=== PATIENT | male | born 1950 | race Caucasian/White ===

== ENCOUNTER → 2018-12-15 08:46 | Outpatient (CLI) | payer OTHER, SELFPAY ==
--- NOTE | 2018-12-15 | DI.US.S_ITS ---
PROCEDURE: US ABD AORTA ANEURYSM SCREEN INDICATIONS: AAA SCREENING TECHNIQUE: Real time scanning was performed of the aorta and iliac arteries, with image documentation. COMPARISON: None. FINDINGS: Aorta: Proximal aorta is obscured by overlying bowel gas. Mid-aorta measures 1.8 cm. Distal aortic diameter is 1.7 cm. Iliac arteries: Right common iliac artery measures 1.1 cm. Left common iliac artery measures 1.1 cm. IMPRESSION: No evidence for abdominal aortic aneurysm. Dictated by: Tylor Dempsey M.D. on 12/15/2018 at 9:20 Approved by: Tylor Dempsey M.D. on 12/15/2018 at 9:21
== END ==
PROVIDERS: PCP Family Medicine; Visit Provider Family Medicine
DX: Z13.6 Encounter for screening for cardiovascular disorders (principal)
CPT/HCPCS: 76706; 76775

== ENCOUNTER → 2021-02-26 09:18 | Outpatient (CLI) | payer MEDICARE, SELFPAY ==
[2021-02-26 20:19] LABS: Add Manual Diff / Slide Review NO; Basophils Absolute Auto 100 /uL (0-100); Basophils Percent Auto 0.8 % (0-2); Eosinophils Absolute Auto 200 /uL (0-450); Eosinophils Percent Auto 2.7 % (2-4); Hematocrit 42.2 % (41-53); Hemoglobin 13.9 g/dL (13.5-17.5); Lymphocytes Absolute Auto 1700 /uL (1100-4500); Mean Corpuscular Hemoglobin 32.3 PG (26-34); Mean Corpuscular Volume 97.9 fL (80-100); Monocytes Absolute Auto 500 /uL (0-900); Monocytes Percent Auto 6.7 % (3-14); Neutrophils Absolute Auto 4900 /uL (1500-7000); Neutrophils Percent Auto 66.8 % (50-75); Platelet Count 308 X10^3/uL (150-400); Red Blood Cell Count 4.31 X10^6/uL (4.5-5.9); Red Cell Distribution Width 14.9 % (11.6-14.8); White Blood Cell Count 7.4 X10^3/uL (4.5-11.0)
[2021-02-26 20:28] LABS: HEMOLYSIS < 15 (0-50); Potassium 4.8 mmol/L (3.4-5.1)
[2021-02-26 20:29] LABS: Alanine Aminotransferase 30 IU/L (<50); Albumin 4.4 g/dL (3.5-5.0); Albumin Globulin Ratio 1.5 (1.0-2.8); Alkaline Phosphatase 63 U/L (38-126); Aspartate Aminotransferase 33 IU/L (17-59); BUN Creatinine Ratio 23.3 (6-22); Bilirubin Total 0.5 mg/dL (0.2-1.3); Blood Urea Nitrogen 20 mg/dL (9-20); Calcium 10.3 mg/dL (8.4-10.2); Carbon Dioxide 27 mmol/L (22-32); Chloride 102 mmol/L (98-107); Cholesterol 167 mg/dL (140-199); Estimated Glomerular Filt Rate > 60.0 mL/min (>60); Glucose 107 mg/dL (80-110); HDL Cholesterol 35 mg/dL (40-60); LDL Cholesterol Calculated 96 mg/dL (<100); Sodium 139 mmol/L (137-145); Total Protein 7.4 g/dL (6.3-8.2); Triglycerides 182 mg/dL (35-150); Uric Acid 5.6 mg/dL (3.5-8.5)
[2021-02-26 20:49] LABS: Hemoglobin A1C% w Est Avg Glu 6.2 % (4.0-6.0)
[2021-02-26 20:55] LABS: Prostate Specific Antigen 1.68 ng/mL (0.10-4.00)
== END ==
PROVIDERS: PCP Family Medicine; Visit Provider Family Medicine
DX: N40.1 Benign prostatic hyperplasia with lower urinary tract symptoms (principal); R35.1 Nocturia; M10.9 Gout, unspecified; R73.03 Prediabetes; I10 Essential (primary) hypertension; F31.9 Bipolar disorder, unspecified; M48.02 Spinal stenosis, cervical region
CPT/HCPCS: 80053; 80061; 83036; 84153; 84550; 85025

== ENCOUNTER → 2021-08-14 09:40 | Outpatient (CLI) | payer MEDICARE, SELFPAY ==
[2021-08-14 19:37] LABS: Alanine Aminotransferase 25 IU/L (<50); Albumin 4.4 g/dL (3.5-5.0); Albumin Globulin Ratio 1.5 (1.0-2.8); Alkaline Phosphatase 65 U/L (38-126); Aspartate Aminotransferase 26 IU/L (17-59); BUN Creatinine Ratio 23.2 (6-22); Bilirubin Total 0.4 mg/dL (0.2-1.3); Blood Urea Nitrogen 19 mg/dL (9-20); Carbon Dioxide 27 mmol/L (22-32); Chloride 104 mmol/L (98-107); Cholesterol 133 mg/dL (140-199); Estimated Glomerular Filt Rate > 60.0 mL/min (>60); Globulin 2.9 g/dL (1.7-4.1); Glucose 109 mg/dL (80-110); HDL Cholesterol 43 mg/dL (40-60); HEMOLYSIS < 15 (0-50); Hemoglobin A1C% w Est Avg Glu 5.8 % (4.0-6.0); LDL Cholesterol Calculated 63 mg/dL (<100); Potassium 4.4 mmol/L (3.4-5.1); Sodium 141 mmol/L (137-145); Total Protein 7.3 g/dL (6.3-8.2); Triglycerides 133 mg/dL (35-150)
== END ==
PROVIDERS: PCP Family Medicine; Visit Provider Family Medicine
DX: B00.9 Herpesviral infection, unspecified (principal); E78.5 Hyperlipidemia, unspecified; R73.09 Other abnormal glucose; R73.9 Hyperglycemia, unspecified; R91.1 Solitary pulmonary nodule
CPT/HCPCS: 80053; 80061; 83036

== ENCOUNTER → 2021-11-09 12:12 | Outpatient (CLI) | payer MEDICARE, SELFPAY ==
--- NOTE | 2021-11-09 12:33 | DI.CT.S_ITS ---
PROCEDURE: CT CHEST WO CON INDICATIONS: re-evaluate Right upper lobe nodule last CT 12/05/2019 TECHNIQUE: Noncontrast 2.0-2.5 mm thick sections acquired from the pulmonary apices to the posterior costophrenic angles. 7 mm thick axial MIP and 5 mm coronal and sagittal reformats were then acquired. A low radiation dose technique was utilized. COMPARISON: [facility], CT, CT LOW DOSE LUNG CA SCREENING, 12/15/2018, 11:00. [facility], CT, CT LOW DOSE LUNG CA SCREENING, 12/05/2019, 11:33. FINDINGS: Image quality: Diagnostic, given the low radiation dose technique. Lungs and pleura: Stable lung nodules since 12/05/2019. Nodule 1: 6 mm; right upper lobe; series 4, image 153). Nodule 2: 2 mm; right minor fissure nodule; series 4, image 159. Mediastinum: Heart size is normal. Mild coronary artery calcification. No pericardial effusion. No mediastinal adenopathy by size criteria. Thoracic aorta and central pulmonary arteries are normal in size. Esophagus is normal in caliber. Small hiatal hernia. Bones and chest wall: No suspicious bony lesions. No vertebral body compression fractures. No axillary or supraclavicular adenopathy by size criteria. Thyroid gland is normal. Abdomen: Visualized upper abdomen solid organs and bowel loops appear normal in the absence of contrast. IMPRESSION: 1. Stable right upper lobe nodule. ACR Lung rads category 2. Recommend screening lung CT in 12 months. Fleischner Society criteria for SOLID lung nodule followup. Nodule size (mm)Low-risk patientHigh-risk patient<6 (single or multiple)No routine followup.Optional CT at 12 months. 6-8 (single or multiple)CT at 6-12 months, then optional CT at 18-24 mo.CT at 6-12 months, then CT at 18-24 months. >8 (single)CT at 3 months, PET-CT, or biopsy. Same as for low-risk pts. >8 (multiple)CT at 3-6 months, then optional CT at 18-24 mo.CT at 3-6 months, then CT at 18-24 months. Fleischner Society criteria for SUB-SOLID lung nodule followup. Solitary pure ground-glass nodules<6 mm (ground glass or part solid)No followup needed. 6 mm or larger (ground glass)CT at 6-12 months to confirm persistence, then CT every 2 years until 5 years.6 mm or larger (part solid)CT at 3-6 months to confirm persistence, then annual CT until 5 years if unchanged and solid component remains <6 mm. Multiple sub-solid nodules<6 mmCT at 3-6 months, then CT consider at 2 & 4 years for high risk patients. [address] at 3-6 months. Subsequent management based on most suspicious lesions. Recommendations do not apply to lung cancer screening, patients with immunosuppression, or patients with known primary cancer. Dictated by: Tylor Dempsey M.D. on 11/09/2021 at 13:18 Approved by: Tylor Dempsey M.D. on 11/09/2021 at 13:31
== END ==
PROVIDERS: PCP Family Medicine; Referring Provider Family Medicine; Visit Provider Family Medicine
DX: R91.1 Solitary pulmonary nodule (principal); I25.10 Atherosclerotic heart disease of native coronary artery without angina pectoris
CPT/HCPCS: 71250

== ENCOUNTER → 2022-06-28 10:16 | Outpatient (CLI) | payer MEDICARE, SELFPAY ==
[2022-06-28 19:50] LABS: Alanine Aminotransferase 51 IU/L (<50); Albumin 4.6 g/dL (3.5-5.0); Albumin Globulin Ratio 1.5 (1.0-2.8); Alkaline Phosphatase 62 U/L (38-126); Aspartate Aminotransferase 41 IU/L (17-59); BUN Creatinine Ratio 21.4 (6-22); Bilirubin Total 0.5 mg/dL (0.2-1.3); Blood Urea Nitrogen 18 mg/dL (9-20); Calcium 9.7 mg/dL (8.4-10.2); Carbon Dioxide 30 mmol/L (22-32); Chloride 100 mmol/L (98-107); Cholesterol 154 mg/dL (140-199); Estimated Glomerular Filt Rate > 60 mL/min (>60); Glucose 110 mg/dL (80-110); HDL Cholesterol 36 mg/dL (40-60); HEMOLYSIS < 15 (0-50); Hemoglobin A1C% w Est Avg Glu 6.1 % (4.0-6.0); LDL Cholesterol Calculated 87 mg/dL (<100); Potassium 5.3 mmol/L (3.4-5.1); Sodium 139 mmol/L (137-145); Total Protein 7.6 g/dL (6.3-8.2); Triglycerides 156 mg/dL (35-150); Uric Acid 4.2 mg/dL (3.5-8.5)
[2022-06-28 20:16] LABS: Prostate Specific Antigen Scrn 1.56 ng/mL (0.1-4.0)
[2022-06-28 20:18] LABS: TSH w/ Reflex to FT4 2.41 uIU/mL (0.47-4.68)
[2022-06-28 20:41] LABS: HIV 1 & 2 Ab/Ag 4th Gen Combo NEGATIVE (NEGATIVE); Hep C Virus Ab w/Reflex Quant NEGATIVE s/c (NEGATIVE)
== END ==
PROVIDERS: PCP Family Medicine; Visit Provider Family Medicine
DX: M25.559 Pain in unspecified hip (principal); F10.20 Alcohol dependence, uncomplicated; M10.9 Gout, unspecified; R73.03 Prediabetes; Z00.00 Encounter for general adult medical examination without abnormal findings; Z12.5 Encounter for screening for malignant neoplasm of prostate
CPT/HCPCS: 80053; 80061; 83036; 84443; 84550; 86803; 87389; G0103

== ENCOUNTER → 2023-01-21 09:45 | Outpatient (CLI) | payer MEDICARE, SELFPAY ==
--- NOTE | 2023-01-21 09:46 | DI.CT.S_ITS ---
PROCEDURE: CT CHEST WO CON INDICATIONS: 12 month fu nodule TECHNIQUE: Noncontrast 2.0-2.5 mm thick sections acquired from the pulmonary apices to the posterior costophrenic angles. 7 mm thick axial MIP and 5 mm coronal and sagittal reformats were then acquired. A low radiation dose technique was utilized. COMPARISON: [facility], CT, CT LOW DOSE LUNG CA SCREENING, 12/15/2018, 11:00. [facility], CT, CT LOW DOSE LUNG CA SCREENING, 12/05/2019, 11:33. [facility], CT, CT CHEST WO CON, 11/09/2021, 12:17. FINDINGS: Image quality: Diagnostic, given the low radiation dose technique. Lungs and pleura: Stable right upper lobe lung nodules. Nodule 1: 6 mm; series 3, image 144. Nodule 2: 2 mm; series 3 image 150. Mediastinum: Heart size is normal. Bxom-ny-lojivisd coronary artery calcification. No pericardial effusion. No mediastinal adenopathy by size criteria. Thoracic aorta and central pulmonary arteries are normal in size. Esophagus is normal in caliber. No hiatal hernia. Bones and chest wall: No suspicious bony lesions. No vertebral body compression fractures. No axillary or supraclavicular adenopathy by size criteria. Thyroid gland is unremarkable . Abdomen: Visualized upper abdomen solid organs and bowel loops appear normal in the absence of contrast. IMPRESSION: Stable lung nodules. ACR Lung-RADS category 2. Recommend annual screening lung CT in 12 months. Fleischner Society criteria for SOLID lung nodule followup. Nodule size (mm)Low-risk patientHigh-risk patient<6 (single or multiple)No routine followup.Optional CT at 12 months. 6-8 (single or multiple)CT at 6-12 months, then optional CT at 18-24 mo.CT at 6-12 months, then CT at 18-24 months. >8 (single)CT at 3 months, PET-CT, or biopsy. Same as for low-risk pts. >8 (multiple)CT at 3-6 months, then optional CT at 18-24 mo.CT at 3-6 months, then CT at 18-24 months. Fleischner Society criteria for SUB-SOLID lung nodule followup. Solitary pure ground-glass nodules<6 mm (ground glass or part solid)No followup needed. 6 mm or larger (ground glass)CT at 6-12 months to confirm persistence, then CT every 2 years until 5 years.6 mm or larger (part solid)CT at 3-6 months to confirm persistence, then annual CT until 5 years if unchanged and solid component remains <6 mm. Multiple sub-solid nodules<6 mmCT at 3-6 months, then CT consider at 2 & 4 years for high risk patients. [address] at 3-6 months. Subsequent management based on most suspicious lesions. Recommendations do not apply to lung cancer screening, patients with immunosuppression, or patients with known primary cancer. Dictated by: Tylor Dempsey M.D. on 01/21/2023 at 10:59 Approved by: Tylor Dempsey M.D. on 01/21/2023 at 11:04
== END ==
PROVIDERS: PCP Family Medicine; Referring Provider Family Medicine; Visit Provider Family Medicine
DX: R91.8 Other nonspecific abnormal finding of lung field (principal)
CPT/HCPCS: 71250

== ENCOUNTER → 2023-07-19 09:50 | Outpatient (CLI) | payer MEDICARE, SELFPAY ==
[2023-07-19 19:14] LABS: Alanine Aminotransferase 44 IU/L (<50); Albumin 4.3 g/dL (3.5-5.0); Albumin Globulin Ratio 1.5 (1.0-2.8); Alkaline Phosphatase 70 U/L (38-126); Aspartate Aminotransferase 34 IU/L (17-59); BUN Creatinine Ratio 22.9 (6-22); Bilirubin Total 0.5 mg/dL (0.2-1.3); Blood Urea Nitrogen 19 mg/dL (9-20); Calcium 9.8 mg/dL (8.4-10.2); Carbon Dioxide 26 mmol/L (22-32); Chloride 104 mmol/L (98-107); Cholesterol 174 mg/dL (140-199); Estimated Glomerular Filt Rate > 60 mL/min (>60); Globulin 2.8 g/dL (1.7-4.1); Glucose 113 mg/dL (80-110); HDL Cholesterol 38 mg/dL (40-60); HEMOLYSIS < 15 (0-50); LDL Cholesterol Calculated 113 mg/dL (<100); Potassium 4.7 mmol/L (3.4-5.1); Sodium 138 mmol/L (137-145); Total Protein 7.1 g/dL (6.3-8.2); Triglycerides 113 mg/dL (35-150)
[2023-07-19 19:26] LABS: Add Manual Diff / Slide Review NO; Basophils Absolute Auto 100 /uL (0-100); Basophils Percent Auto 0.8 % (0-2); Eosinophils Absolute Auto 100 /uL (0-450); Hematocrit 43.6 % (41-53); Hemoglobin 14.6 g/dL (13.5-17.5); Lymphocytes Absolute Auto 1800 /uL (1100-4500); Mean Corpuscular HGB Conc 33.4 % (30-36); Mean Corpuscular Hemoglobin 32.1 PG (26-34); Mean Corpuscular Volume 96.1 fL (80-100); Monocytes Absolute Auto 500 /uL (0-900); Monocytes Percent Auto 7.6 % (3-14); Neutrophils Absolute Auto 4700 /uL (1500-7000); Neutrophils Percent Auto 64.6 % (50-75); Platelet Count 254 X10^3/uL (150-400); Red Blood Cell Count 4.54 X10^6/uL (4.5-5.9); Red Cell Distribution Width 14.5 % (11.6-14.8); White Blood Cell Count 7.2 X10^3/uL (4.5-11.0)
[2023-07-19 19:32] LABS: Hemoglobin A1C% w Est Avg Glu 5.8 % (4.0-6.0)
[2023-07-19 19:43] LABS: Prostate Specific Antigen Scrn 2.12 ng/mL (0.1-4.0)
== END ==
PROVIDERS: PCP Family Medicine; Visit Provider Family Medicine
DX: E78.5 Hyperlipidemia, unspecified (principal); I10 Essential (primary) hypertension; R73.03 Prediabetes; Z12.5 Encounter for screening for malignant neoplasm of prostate
CPT/HCPCS: 80053; 80061; 83036; 85025; G0103

== ENCOUNTER → 2023-08-08 09:56 | Outpatient (CLI) | payer MEDICARE, SELFPAY ==
[2023-08-08 19:51] LABS: HEMOLYSIS 15 (0-50); Iron 172 ug/dL (49-181)
[2023-08-08 20:04] LABS: Percent Iron Saturation 55 % (20-50); Total Iron Binding Capacity 310 ug/dL (261-462); Transferrin 244 mg/dL (206-381)
[2023-08-08 20:30] LABS: TSH w/ Reflex to FT4 2.31 uIU/mL (0.47-4.68)
[2023-08-08 20:33] LABS: Ferritin 115 ng/mL (18-464)
[2023-08-08 20:48] LABS: Vitamin B12 Reflex MMA if <400 842 pg/mL (239-931)
[2023-08-10 05:20] LABS: HBsAg Screen Negative (Negative); Hepatitis A Antibody IgM Negative (Negative); Hepatitis B Core Antibody IgM Negative (Negative); Hepatitis C Antibody Non Reactive (Non Reactive)
[2023-08-10 19:36] LABS: Free Kappa Lt Chains, Serum 24.1 mg/L (3.3-19.4); Free Lambda Lt Chains,Serum 14.3 mg/L (5.7-26.3)
[2023-08-11 08:54] LABS: Hepatitis B Surf Ab Qualitativ Reactive (.)
[2023-08-12 14:33] LABS: Alpha-1-Globulin 0.2 g/dL (0.0-0.4); Alpha-2-Globulin 0.9 g/dL (0.4-1.0); Gamma Globulin 0.8 g/dL (0.4-1.8); Globulin Total 2.9 g/dL (2.2-3.9); Protein, Total 6.9 g/dL (6.0-8.5)
[2023-08-12 16:41] LABS: ANA Screen, IFA Negative (.)
== END ==
PROVIDERS: PCP Family Medicine; Visit Provider Family Medicine
DX: R74.01 Elevation of levels of liver transaminase levels (principal); G62.9 Polyneuropathy, unspecified
CPT/HCPCS: 80074; 82607; 82728; 83540; 83550; 83883; 84155; 84165; 84443; 86038; 86706

== ENCOUNTER → 2023-08-17 08:46 | Outpatient (CLI) | payer MEDICARE, SELFPAY ==
--- NOTE | 2023-08-17 08:47 | DI.US.S_ITS ---
PROCEDURE: US ABDOMEN LIMITED INDICATIONS: LEFT GROIN AND RIGHT UPPER QUADRANT PAIN TECHNIQUE: Real-time scanning was performed of the abdominal and retroperitoneal organs, with image documentation. COMPARISON: None. FINDINGS: Liver: The liver measures 15.4 cm in length and demonstrates increased echogenicity throughout. Gallbladder: Multiple 1-2 mm polyps are noted along the gallbladder wall. No pericholecystic fluid, sonographic Ayala sign or gallbladder wall thickening. Biliary ducts: Intrahepatic bile ducts are non-dilated. Extrahepatic bile duct caliber measures 2 mm. Normal is 6-7 mm or less in diameter, or 10 mm or less post-cholecystectomy. Pancreas: Visualized portions of the pancreas are sonographically normal. The tail the pancreas is not visualized. Miscellaneous: No free abdominal fluid. No left inguinal hernia noted in the area of pain. IMPRESSION: 1. Increased hepatic echogenicity noted likely related to fatty infiltration of the liver but other sources of hepatocellular disease cannot be excluded. 2. Multiple 1-2 mm gallbladder polyps noted. No gallbladder wall thickening or pericholecystic fluid. No findings to suggest choledocholithiasis or acute cholecystitis. 3. No sonographic evidence for left inguinal hernia. Dictated by: Shayna Ding M.D. on 08/17/2023 at 10:35 Approved by: Shayna Ding M.D. on 08/17/2023 at 10:45
== END ==
PROVIDERS: PCP Family Medicine; Referring Provider Family Medicine; Visit Provider Family Medicine
DX: K82.4 Cholesterolosis of gallbladder (principal); R10.11 Right upper quadrant pain; R74.01 Elevation of levels of liver transaminase levels; R10.32 Left lower quadrant pain; G89.29 Other chronic pain
CPT/HCPCS: 76705

== ENCOUNTER → 2024-01-12 09:20 | Outpatient (CLI) | payer MEDICARE, SELFPAY ==
--- NOTE | 2024-01-12 09:22 | DI.CT.S_ITS ---
PROCEDURE: CT LUNG LOW DOSE SCREENING INDICATIONS: lung cancer screening TECHNIQUE: Noncontrast 2.0-2.5 mm thick sections acquired from the pulmonary apices to the posterior costophrenic angles. 7 mm thick axial MIP, and 5 mm coronal and sagittal reformats were then acquired. For radiation dose reduction, the following was used: automated exposure control, adjustment of mA and/or kV according to patient size. COMPARISON: None. FINDINGS: Image quality: Diagnostic. Lower Neck: No enlarged lymph nodes. Thyroid: No thyroid nodules which require sonographic follow up, per consensus guidelines. Axillae: No enlarged lymph nodes. Chest Wall: Unremarkable. Bones: Unremarkable. Lungs and Pleura: No pneumothorax or pleural effusions. Mild emphysematous changes. A few scattered pulmonary micro nodules, for example 2-3 millimeter nodule in the left upper lobe (3/169, MIP image 87). Heart: Heart size is normal. No pericardial effusion. Moderate to severe coronary artery calcifications. Thoracic Vessels: The aorta and pulmonary arteries demonstrate normal size. Mediastinum and Lisbet: No enlarged lymph nodes. Esophagus: No wall thickening. No hiatal hernia. Upper Abdomen: Visualized upper abdomen solid organs and bowel loops appear normal. IMPRESSION: Scattered pulmonary micro nodules. LUNG-RADS 2; continued annual screening, if eligible. Clinically Significant Non-pulmonary Findings: Moderate to severe coronary artery calcifications. Consider cardiology referral. Approved by: Corazon Killian M.D.,Ph.D. on 01/12/2024 at 12:08
== END ==
PROVIDERS: PCP Family Medicine; Referring Provider Family Medicine; Visit Provider Family Medicine
DX: Z87.891 Personal history of nicotine dependence (principal); Z12.2 Encounter for screening for malignant neoplasm of respiratory organs; R91.8 Other nonspecific abnormal finding of lung field; I25.10 Atherosclerotic heart disease of native coronary artery without angina pectoris
CPT/HCPCS: 71271

== ENCOUNTER → 2024-02-22 09:56 | Outpatient (CLI) | payer MEDICARE, SELFPAY ==
[2024-02-22 21:22] LABS: Hemoglobin A1C% w Est Avg Glu 6.4 % (4.0-6.0)
[2024-02-22 23:07] LABS: Percent Iron Saturation 41 % (20-50)
== END ==
PROVIDERS: PCP Family Medicine; Visit Provider Family Medicine
DX: R76.8 Other specified abnormal immunological findings in serum (principal); R73.03 Prediabetes; I10 Essential (primary) hypertension; K76.0 Fatty (change of) liver, not elsewhere classified
CPT/HCPCS: 83036; 83883

== ENCOUNTER 2024-06-21 08:19 | Day surgery (SDC) | payer MEDICARE, SELFPAY ==
[2024-06-21 08:50] VITALS: BP 142/92; PULSE 73; RESP 20; TEMP 36.1; O2SAT 98
[2024-06-21] MEDS: LACTATED RINGERS 1,000 ML 150 ML IV (08:58)
--- NOTE | 2024-06-21 09:01 | PM.HP.1 ---
History of Present Illness History of Present Illness Date Patient Seen: 06/21/24 Time Patient Seen: 09:01 Chief complaint: Screening Colonoscopy Narrative: Leroy is a 73-year-old man who is here for a colonoscopy. His last was approximately 5 years ago. He has had polyps removed. No known family history of colon cancer. [facility] Medical History (Updated 06/21/24 @ 09:02 by Messi Quinonez MD) Prediabetes Alcoholism Well adult exam Lung nodule Hip pain Hearing loss Tinnitus (~1999) Screening for colon cancer Screening for prostate cancer (~02/2019) H/O tobacco use, presenting hazards to health H/O acute alcoholic hepatitis Surgical History Status post cervical spinal fusion Anesthesia History of surgery (~12/17/20) Family History Father History of heart disease Grandfather Hypertension Mother Dementia Social History Smoking Status: Former smoker Meds Home Medications and Allergies Home Medications Medication Instructions Recorded Confirmed Type vitamin B complex (B 1 tab PO DAILY 06/28/22 03/27/24 History Complex-Vitamin B12 tablet) valacyclovir 500 mg tablet See Rx Instructions .Route 12/31/22 03/27/24 Rx .COMPLEX #12 tabs simvastatin 40 mg tablet 40 mg PO DAILY #90 tabs 08/04/23 03/27/24 Rx vit C 250 mg-vit E 90 mg-zinc 40 PO BID Mascular degeneration 12/20/23 03/27/24 History mg-copper 1 [id number] capsule (PreserVision AREDS-2) allopurinol 300 mg tablet 300 mg PO DAILY gout #90 tabs 02/22/24 03/27/24 Rx lisinopril 10 mg tablet 10 mg PO DAILY for blood pressure. 02/22/24 03/27/24 Rx take every day even if normal. #90 tabs metoprolol succinate 25 mg 25 mg PO DAILY for blood pressure. 02/22/24 06/21/24 Rx tablet,extended release 24 hr take every day even if normal. #90 tabs Allergies Allergy/AdvReac Type Severity Reaction Status Date / Time No Known Drug Allergies Allergy Verified 06/21/24 08:39 Exam Vital Signs (past 8 hours): - 06/21/24 08:50 Temperature 97 F L Pulse Rate 73 Respiratory Rate 20 Blood Pressure 142/92 H Pulse Oximetry 98 Oxygen Delivery Method Room Air Oxygen Delivery Method Room Air Const General: No acute distress Resp Effort & Inspection: normal respiratory effort Assessment & Plan Assessment and plan (1) History of colon polyps: Status: Acute Plan We reviewed the risks and benefits of colonoscopy for history of polyps and he would like to proceed. Time-Based Coding :: [TOTAL MINUTES] spent with patient and on the chart (including review of chart, obtaining history, exam, reviewing outside data, placing orders, documenting exam and treatment plan, and counseling patient) on [DATE].
[2024-06-21 09:27] VITALS: BP 92/55; PULSE 60; RESP 12; TEMP 36.9; O2SAT 96
--- NOTE | 2024-06-21 09:27 | P.OP.COLON_ITS ---
Operative Date/Time/Diagnoses Date of procedure: 06/21/24 Time of procedure: 09:27 Pre-op diagnosis: History of polyps Post-op diagnosis: same Procedure & Clinicians Study performed: Colonoscopy Same procedure as scheduled: Yes Surgeon: Messi Quinonez Procedure Notes Procedure in detail: Surgeon: Messi Quinonez MD Anesthesia: Kaylyn Lloyd CRNA Procedure: The patient was brought to the endoscopy suite, placed in left lateral decubitus position. The patient was connected to monitoring devices. A time-out was performed. Sedation was administered. Once the patient was adequately sedated, a digital rectal exam was performed and was normal. The scope was then inserted and advanced to the cecum where the appendiceal orifice was identified and photographed. The scope was then slowly withdrawn over greater than 6 minutes. The mucosa was thoroughly inspected. No polyps were i dentified. There was moderate sigmoid colon diverticulosis. The scope was retroflexed in the rectum. There were internal hemorrhoids. The scope was straightened and removed. The patient was awakened and brought to recovery. Scope withdrawal time: 8 minutes Sedation time: 14 minutes EBL: 0 Findings: Sigmoid colon diverticulosis Post-procedure Disposition: PACU
[2024-06-21 09:32] VITALS: BP 102/69; PULSE 61; RESP 12; TEMP 36.9; O2SAT 96
== END 2024-06-21 10:12 | disposition home or self-care (01) ==
PROVIDERS: PCP Family Medicine; Referring Provider Surgery; Visit Provider Surgery
PROC: 0DJD8ZZ Inspection of Lower Intestinal Tract, Via Natural or Artificial Opening Endoscopic (ICD-10-PCS; CPT 45378; principal; 2024-06-21 09:30)
DX: Z12.11 Encounter for screening for malignant neoplasm of colon (principal); Z86.010 Personal history of colon polyps; K57.30 Diverticulosis of large intestine without perforation or abscess without bleeding; K64.8 Other hemorrhoids
CPT/HCPCS: G0105; J2704

== ENCOUNTER → 2024-07-17 09:01 | Outpatient (CLI) | payer MEDICARE, SELFPAY ==
[2024-07-17 19:46] LABS: Add Manual Diff / Slide Review NO; Basophils Absolute Auto 100 /uL (0-100); Basophils Percent Auto 1.3 % (0-2); Eosinophils Absolute Auto 200 /uL (0-450); Eosinophils Percent Auto 2.1 % (2-4); Hemoglobin 14.7 g/dL (13.5-17.5); Lymphocytes Absolute Auto 1800 /uL (1100-4500); Lymphocytes Percent Auto 24.9 % (25-40); Mean Corpuscular HGB Conc 33.3 % (30-36); Mean Corpuscular Hemoglobin 31.9 PG (26-34); Mean Corpuscular Volume 95.8 fL (80-100); Monocytes Absolute Auto 600 /uL (0-900); Monocytes Percent Auto 8.7 % (3-14); Neutrophils Absolute Auto 4600 /uL (1500-7000); Platelet Count 263 X10^3/uL (150-400); Red Blood Cell Count 4.59 X10^6/uL (4.5-5.9); Red Cell Distribution Width 14.7 % (11.6-14.8); White Blood Cell Count 7.4 X10^3/uL (4.5-11.0)
[2024-07-17 19:52] LABS: Alanine Aminotransferase 33 IU/L (<50); Albumin 4.6 g/dL (3.5-5.0); Albumin Globulin Ratio 1.7 (1.0-2.8); Alkaline Phosphatase 66 U/L (38-126); Aspartate Aminotransferase 35 IU/L (17-59); Bilirubin Total 0.6 mg/dL (0.2-1.3); Blood Urea Nitrogen 23 mg/dL (9-20); Calcium 9.8 mg/dL (8.4-10.2); Carbon Dioxide 26 mmol/L (22-32); Chloride 104 mmol/L (98-107); Cholesterol 142 mg/dL (140-199); Estimated Glomerular Filt Rate > 60 mL/min (>60); Globulin 2.7 g/dL (1.7-4.1); Glucose 121 mg/dL (80-110); HDL Cholesterol 43 mg/dL (40-60); HEMOLYSIS < 15 (0-50); LDL Cholesterol Calculated 86 mg/dL (<100); Potassium 4.7 mmol/L (3.4-5.1); Sodium 138 mmol/L (137-145); Total Protein 7.3 g/dL (6.3-8.2); Triglycerides 63 mg/dL (35-150)
[2024-07-17 20:20] LABS: Prostate Specific Antigen Scrn 1.74 ng/mL (0.1-4.0)
== END ==
PROVIDERS: PCP Family Medicine; Visit Provider Family Medicine
DX: R73.03 Prediabetes (principal); K76.0 Fatty (change of) liver, not elsewhere classified; I10 Essential (primary) hypertension; E78.5 Hyperlipidemia, unspecified; Z12.5 Encounter for screening for malignant neoplasm of prostate
CPT/HCPCS: 80053; 80061; 85025; G0103

== ENCOUNTER → 2024-08-24 06:56 | Outpatient (CLI) | payer MEDICARE, SELFPAY ==
--- NOTE | 2024-08-24 06:57 | DI.CT.S_ITS ---
PROCEDURE: CT LUNG LOW DOSE SCREENING INDICATIONS: annual CT chest for history of tobacco TECHNIQUE: Noncontrast 2.0-2.5 mm thick sections acquired from the pulmonary apices to the posterior costophrenic angles. 7 mm thick axial MIP, and 5 mm coronal and sagittal reformats were then acquired. For radiation dose reduction, the following was used: automated exposure control, adjustment of mA and/or kV according to patient size. COMPARISON: [facility], CT, CT CHEST WO CON, 11/09/2021, 12:17. [facility], CT, CT CHEST WO CON, 01/21/2023, 9:48. [facility], CT, CT LUNG LOW DOSE SCREENING, 01/12/2024, 9:36. FINDINGS: Image quality: Diagnostic. Lungs and Pleura: 0.3 cm left upper lobe solid nodule, 3/159, stable. Minimal subpleural reticulation in the right middle lobe and lingula at the lateral costophrenic sulcus. Mild paraseptal emphysematous changes at the lung apices. Minimal diffuse bronchial wall thickening. No bronchiectasis. No dense consolidations or pleural effusions. Tiny right costophrenic sulcus pleural calcification. Lower Neck: No enlarged lymph nodes. Thyroid: Normal CT appearance. Axillae: No enlarged lymph nodes. Chest Wall: No suspicious chest wall mass. Bones: No suspicious bone lesions. Mild degenerative changes in the thoracic spine. Heart: Heart size is normal. No pericardial effusion. Moderate coronary artery calcification. Thoracic Vessels: The aorta and pulmonary arteries demonstrate normal size. Mediastinum and Lisbet: No enlarged lymph nodes. Esophagus: No wall thickening. No hiatal hernia. Upper Abdomen: Visualized upper abdomen solid organs and bowel loops appear normal. IMPRESSION: No suspicious pulmonary nodules. LUNG-RADS two, benign; 12 month low-dose chest CT for screening is recommended. Clinically Significant Non-pulmonary Findings: Moderate coronary artery calcification. Dictated by: Linda Holley M.D. on 08/24/2024 at 14:37 Approved by: Linda Holley M.D. on 08/24/2024 at 14:43
== END ==
PROVIDERS: PCP Family Medicine; Referring Provider Family Medicine; Visit Provider Family Medicine
DX: Z87.891 Personal history of nicotine dependence (principal); Z12.2 Encounter for screening for malignant neoplasm of respiratory organs
CPT/HCPCS: 71271

== ENCOUNTER 2025-05-13 14:54 | Emergency (ER) | payer MEDICARE, OTHER, SELFPAY ==
[2025-05-13 15:04] VITALS: BP 121/72; PULSE 74; RESP 17; TEMP 36.7; O2SAT 96; BMI 27.6
--- NOTE | 2025-05-13 16:39 | ED.NECK ---
HPI - Neck Pain/Injury General Chief Complaint: Neck Pain/Injury Stated Complaint: wic-sent , back pain/neck pain Time Seen by Provider: 05/13/25 16:05 Mode of arrival: Ambulatory History of Present Illness HPI Narrative: 74-year-old male with past medical history spinal stenosis of the cervical region, status post spinal fusion of the cervical region presents to the ED with an acute on chronic exacerbation of neck pain for the last week. Patient denies any trauma. Spontaneous onset. Patient is complaining of neck pain, he has taken some ibuprofen without much relief. No numbness, tingling, weakness. Related Data Home Medications ?Medication ?Instructions ?Recorded ?Confirmed vitamin B complex (B 1 tab PO DAILY 06/28/22 03/12/25 Complex-Vitamin B12 tablet) vit C 250 mg-vit E 90 mg-zinc 40 PO BID Mascular degeneration 12/20/23 03/12/25 mg-copper 1 [id number] capsule (PreserVision AREDS-2) [facility] PO DAILY 11/29/24 03/12/25 fluorouracil 5 % topical cream 1 applic topical BID 03/12/25 03/12/25 Previous Rx's ?Medication ?Instructions ?Recorded lisinopril 10 mg tablet 5 mg (1/2 x 10 mg) PO DAILY for 08/02/24 blood pressure. take every day even if normal. #90 tabs tamsulosin 0.4 mg capsule 0.4 mg PO BEDTIME for urine - use 08/02/24 every day #90 caps simvastatin 40 mg tablet 40 mg PO DAILY #90 tabs 08/03/24 valacyclovir 500 mg tablet See Rx Instructions .Route 08/18/24 .COMPLEX #12 tabs metoprolol succinate 25 mg 25 mg PO DAILY for blood pressure. 02/15/25 tablet,extended release 24 hr take every day even if normal. #90 tabs gabapentin 100 mg capsule 100 mg PO TID PRN back pain #90 03/12/25 caps allopurinol 300 mg tablet 300 mg PO DAILY gout #90 tabs 03/16/25 Allergies Allergy/AdvReac Type Severity Reaction Status Date / Time No Known Drug Allergies Allergy Verified 05/13/25 15:03 Review of Systems Constitutional Constitutional: Denies chills, Denies fatigue, Denies fever(s), Denies frequent falls, Denies lethargy and Denies weakness Eyes Eyes: Denies change in vision, Denies eye discharge, Denies irritation and Denies loss of vision ENT Ears, Nose, Mouth, and Throat: Denies change in voice, Denies dizziness, Reports neck pain, Denies sore throat and Denies throat swelling Cardiovascular Cardiovascular: Denies chest pain, Denies irregular heart rhythm, Denies lightheadedness, Denies palpitations, Denies dyspnea, Denies dyspnea on exertion and Denies orthopnea Respiratory Respiratory: Denies cough, Denies dyspnea, Denies dyspnea on exertion and Denies wheezing Gastrointestinal Gastrointestinal: Denies abdominal pain, Denies change in bowel habits, Denies diarrhea, Denies nausea and Denies vomiting Musculoskeletal Musculoskeletal: Reports neck pain and Denies numbness Integumentary/Breasts Skin/Breast: Denies pruritus, Denies erythema, Denies rash and Denies wounds Neurologic Neurologic: Denies behavioral changes, Denies confusion, Denies dizziness, Denies frequent falls, Denies loss of vision, Denies numbness and Denies weakness Psychiatric Psychiatric: Denies anxiety, Denies behavioral changes, Denies confusion, Denies depression, Denies homicidal ideation and Denies suicidal ideation Endocrine Endocrine: Denies fatigue, Denies flushing and Denies palpitations Hematologic/Lymphatic Hematologic/Lymphatic: Denies easy bruising Allergic/Immunologic Allergic/Immunologic: Denies urticaria, Denies throat swelling and Denies wheezing Patient History Medical History Bipolar disease, chronic Osteoporosis Prediabetes Alcoholism Well adult exam Lung nodule Hip pain Hearing loss Tinnitus (~1999) Screening for colon cancer Screening for prostate cancer (~02/2019) H/O tobacco use, presenting hazards to health H/O acute alcoholic hepatitis Surgical History Status post cervical spinal fusion Anesthesia History of surgery (~12/17/20) Family History Father History of heart disease Grandfather Hypertension Mother Dementia Smoking Status: Never smoker alcohol intake frequency: holidays/special occasions only Exam Narrative Exam Narrative: Const General:?cooperative, healthy appearing and comfortable [facility] Head:?normal to inspection Ears:?hearing grossly normal bilaterally Nose:?external nose normal Face and sinus:?normal facial exam and sinuses nontender Mouth:?oral mucosae normal Throat:?posterior oropharynx normal Eyes General:?appearance normal, both eyes and all related structures Neck Neck:?normal visual inspection and no lymphadenopathy noted Resp Effort & Inspection:?normal respiratory effort Auscultation:?clear to auscultation bilaterally Cardio Rate:?regular rate Rhythm:?regular rhythm Musculoskeletal No midline tenderness to palpation. No paraspinal tenderness to palpation. Gait is normal. Strength and sensation is intact. Neurovascularly intact. Neuro General:?patient alert, patient awake and patient oriented x3 Initial Vital Signs Initial Vital Signs: Vital Signs Temperature 98.1 F 05/13/25 15:04 Pulse Rate 74 05/13/25 15:04 Respiratory Rate 17 05/13/25 15:04 Blood Pressure 121/72 05/13/25 15:04 Pulse Oximetry 96 05/13/25 15:04 Oxygen Delivery Method Room Air 05/13/25 15:04 Course Vital Signs Vital signs: Vital Signs - 8 hr 05/13/25 15:04 Temperature 98.1 F Pulse Rate 74 Respiratory Rate 17 Blood Pressure 121/72 Pulse Oximetry 96 Oxygen Delivery Method Room Air MDM - Neck Pain/Injury MDM Narrative Medical decision making narrative: 74-year-old male with past medical history spinal stenosis of the cervical region, status post spinal fusion of the cervical region presents to the ED with an acute on chronic exacerbation of neck pain for the last week. Will obtain CT scan of the cervical spine. CT scan shows no aba acute abnormality. Intact appearing hardware anteriorly at C3-C4. Multiple levels of underlying cervical spine degenerative change can be seen. Discussed findings with patient. Recommend taking Tylenol, applying heat. Recommend follow-up with PCP, ortho lighting specialist. ED return precautions were discussed with patient. Patient verbalized understanding. Medical records reviewed: Yes Discharge Plan Departure Patient Disposition: Home Clinical Impression: Neck pain Instructions: DI for Neck Pain Activity Restrictions/Additional Instructions: You were evaluated in the emergency department for an exacerbation of your chronic neck pain. There were no acute findings on your CT today and the hardware from your prior surgery appears to be intact. There are degenerative/arthritic changes seen. You may apply heat and take 1000 mg of Tylenol every 8 hours for the pain. It is recommended that you follow-up with your PCP as soon as possible. You may also need a referral to a ortho lighting specialist for further evaluation. Return to the ED if you have any worsening symptoms, numbness, tingling, weakness. Prescriptions: No Action simvastatin 40 mg tablet 40 mg PO DAILY Qty: 90 3RF valacyclovir 500 mg tablet See Rx Instructions .ROUTE .COMPLEX Qty: 12 3RF Rx Instructions: take two tablets by mouth twice a day for 1 day at first sign of cold sore; metoprolol succinate 25 mg tablet extended release 24 hr 25 mg PO DAILY Qty: 90 1RF allopurinol 300 mg tablet 300 mg PO DAILY Qty: 90 0RF Rx Instructions: Next appointment and fasting labs due: July 2025 vitamin B complex [B Complex-Vitamin B12] Tablet 1 tab PO DAILY fluorouracil 5 % cream 1 applic topical BID gabapentin 100 mg capsule 100 mg PO TID PRN (Reason: back pain) Qty: 90 3RF Rx Instructions: ok to try 2 tablets 3 times/day if needed. ok to skip doses. let me know your dose so I can reorder. PreserVision AREDS-2 250-90-40-1 mg capsule PO BID tamsulosin 0.4 mg capsule 0.4 mg PO BEDTIME Qty: 90 3RF lisinopril 10 mg tablet 5 mg PO DAILY Qty: 90 1RF Rx Instructions: update dose: 1/2 tab/day [facility] PO DAILY Patient Comments: Prescribed by Dr. Sims for macular degeneration. Referrals: Marzena Pearce MD [Primary Care Provider, Family Practice] Stand Alone Forms: Patient Portal/API
--- NOTE | 2025-05-13 16:47 | DI.CT.S_ITS ---
PROCEDURE: CT CERVICAL SPINE WO CON INDICATIONS: neck pain TECHNIQUE: Noncontrast 3 mm thick sections acquired from the skull base to the T4 level. Sagittal and coronal reformats were then constructed. For radiation dose reduction, the following was used: automated exposure control, adjustment of mA and/or kV according to patient size. COMPARISON: [facility], CR, XR CERVICAL SPINE 2 OR 3 VIEWS, 09/21/2019, 9:49. (Additional prior imaging is not available for review from the archive at the time of this dictation.) FINDINGS: Image quality: This examination is somewhat limited by quantum mottle artifact. Bones: No fractures or dislocations. Visualized superior ribs are intact. Anterior fusion hardware can be seen at the C3-C4 level, without findings of failure or loosening. Focal degenerative change is seen involving the C1-C2 interface anteriorly. There is epty-de-qjgnarjs disc space narrowing seen at C2-C3. At C4-C5, there is at least moderate disc space narrowing, with a degree of vertebral body fusion. Mild disc space narrowing is seen at the C5-C6. At C6-C7, there is at least moderate disc space narrowing, with associated endplate irregularity and sclerosis. Multiple levels of significant facet hypertrophy can be seen, with degrees of fusion. Soft tissues: Prevertebral soft tissues are normal in thickness. No paravertebral hematomas. No apical pneumothoraces. IMPRESSION: No aab acute abnormality is seen. Intact appearing hardware anteriorly at C3-C4. Multiple levels of underlying cervical spine degenerative change can be seen. Dictated by: Alfredo Summers M.D. on 05/13/2025 at 16:06 Approved by: Alfredo Summers M.D. on 05/13/2025 at 16:08
== END 2025-05-13 19:08 | disposition home or self-care (01) ==
PROVIDERS: Emergency Provider Student in an Organized Health Care Education/Training Program; PCP Family Medicine
DX: M54.2 Cervicalgia (principal); G89.29 Other chronic pain; Z87.39 Personal history of other diseases of the musculoskeletal system and connective tissue; Z98.1 Arthrodesis status
CPT/HCPCS: 72125; 99281; 99284

== ENCOUNTER → 2025-07-24 09:11 | Outpatient (CLI) | payer MEDICARE, OTHER, SELFPAY ==
[2025-07-24 18:50] LABS: Add Manual Diff / Slide Review NO; Hematocrit 42.9 % (41-53); Hemoglobin 14.5 g/dL (13.5-17.5); Lymphocytes Absolute Auto 1700 /uL (1100-4500); Mean Corpuscular HGB Conc 33.7 % (30-36); Mean Corpuscular Hemoglobin 31.9 PG (26-34); Mean Corpuscular Volume 94.5 fL (80-100); Platelet Count 330 X10^3/uL (150-400)
[2025-07-24 19:00] LABS: Alanine Aminotransferase 34 IU/L (<50); Albumin 4.7 g/dL (3.5-5.0); Albumin Globulin Ratio 1.6 (1.0-2.8); Alkaline Phosphatase 61 U/L (38-126); Blood Urea Nitrogen 19 mg/dL (9-20); Calcium 9.8 mg/dL (8.4-10.2); Carbon Dioxide 26 mmol/L (22-32); Chloride 102 mmol/L (98-107); Cholesterol 171 mg/dL (140-199); Estimated Glomerular Filt Rate > 60 mL/min (>60); Globulin 2.9 g/dL (1.7-4.1); Glucose 107 mg/dL (70-99); HDL Cholesterol 44 mg/dL (40-60); HEMOLYSIS < 15 (0-50); Potassium 4.7 mmol/L (3.4-5.1); Sodium 137 mmol/L (137-145); Total Protein 7.6 g/dL (6.3-8.2); Triglycerides 123 mg/dL (35-150)
[2025-07-24 19:09] LABS: Hemoglobin A1C% w Est Avg Glu 6.1 % (4.0-6.0)
[2025-07-24 19:42] LABS: Thyroid Stimulating Hormone 2.92 uIU/mL (0.47-4.68)
[2025-07-24 20:18] LABS: Folate 8.8 ng/mL (2.76-20.0); Vitamin B12 500 pg/mL (239-931)
== END ==
PROVIDERS: PCP Family Medicine; Visit Provider Family Medicine
DX: R74.01 Elevation of levels of liver transaminase levels (principal); I10 Essential (primary) hypertension; Z12.5 Encounter for screening for malignant neoplasm of prostate; R73.03 Prediabetes; K76.0 Fatty (change of) liver, not elsewhere classified; E78.5 Hyperlipidemia, unspecified; G62.9 Polyneuropathy, unspecified; R76.89 Other specified abnormal immunological findings in serum
CPT/HCPCS: 80053; 80061; 82607; 82746; 83036; 84443; 85025; G0103